=== PATIENT | male | born 1955 | race Two or more races ===

== ENCOUNTER 2021-09-17 08:01 | Outpatient (AMBR) | payer MEDICARE, MEDICAID, SELFPAY ==
--- NOTE | 2021-08-26 11:39 | PTNOTE_ITS ---
PT OP Initial Eval Patient Information Visit Reasons: left knee Medical Diagnosis: Left Knee Pain; Left Knee Medial Meniscus Tear Treatment Dx #1: Left Knee Mobility Deficits Treatment Dx #2: Difficulty Walking Start of Care: 08/26/21 Date of Onset: 07/30/21 Initial Assessment Subjective Pt is a 65 y/o male s/p left knee partial menisectomy and MMR 07/30/21 secondary to knee injury since . Pt still has a lot of knee pain (8/10) with all activities. Pt has limitation with walking, chores, self care, yardwork, sit- stand, standing, recreational activities, and performing functional tasks. Pt further stated that his left knee has been pending a replacement for 2 years. Objective Left Knee AROM: - 10 deg to 85 deg Left Knee MMTs Quads: 3/5 Hs: 3-/5 Left Hip MMTs Glute Med: 3-/5 Glute Max: 3-/5 SLS: unable Knee Cap Mobility: hypomobile in all plane Gait Observation: step to pattern with crutches with decrease L LE weigthbearing in stance phase Assessment Pt demonstrate left knee mobility and strength deficits s/p knee surgery leading to decline function. 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 1) Decrease knee extension lag to 0 in 8 wks to have a normal gait pattern 2) Increase left knee flexion AROM WFL in 8 wks to be able to perform squatting activities 3) Increase left knee MMTs grossly to 4-/5 in 8 wks to be able to perform stairs and steps 4) Increase left hip MMTs grossly to 3+/5 in 8 wks to be able to perform recreational activities 5) Decrease knee pain to 2/10 in 8 wks to be able to walk more than 1 hr Treatment Plan 1) Manual Therapy 2) Therapeutic Activities 3) Therapeutic Exercises 4) Modalities (ice, heat) 5) Balance Training 6) Gait Training Frequency and Duration 2 x wk for 6 wks Certification Dates: 08/26/21 to 11/24/21 Office Procedures PT Treatments PT Date of Service: 08/26/21 OP PT Eval Mod Complex 30 minutes: Yes
--- NOTE | 2021-08-30 13:11 | PT.ODAYNRPT ---
PT Outpatient Daily Note Date of Service: 08/30/2021 OP Daily Note Visit Reasons: left knee Outpatient Physical Therapy Treatment Date: 08/30/21 Subjective: pt came in late. pt states he took him a while to bare weight due to pain. Objective: see flow sheet. Assessment: pt came in with crutches. he was able to demonstrate ambulation with short distance. pt does have step to gait pattern and is very guarded due to pain and weakness. he is not able to contract the quads. he needs help lifting his leg up onto the bed. pt not able to stand from sitting position using his LLE so he compensated with RLE and used BUE strength sto stand. Plan: continue POC per PT. Length of Time (minutes) of Treatment: 30 Minutes Office Procedures PT Treatments PT Date of Service: 08/26/21 OP PT Eval Mod Complex 30 minutes: Yes PT Treatments PT Date of Service: 08/30/21 Therapeutic Exercise 30 minutes: Yes
--- NOTE | 2021-09-02 09:26 | PT.ODAYNRPT ---
PT Outpatient Daily Note Date of Service: 09/02/21 OP Daily Note Visit Reasons: left knee Outpatient Physical Therapy Treatment Date: 09/02/21 Subjective: Pt mention that his knee feels stiff this AM. Pt has difficulty with walking and sitting and notice more popping lately. Objective: Please see flow chart for list of ther ex performed Assessment: continue to slowly progress with ROM; still has difficulty WB with standing exercises due to pain Plan: Continue with PT Length of Time (minutes) of Treatment: 30 Minutes Office Procedures PT Treatments PT Date of Service: 08/26/21 OP PT Eval Mod Complex 30 minutes: Yes PT Treatments PT Date of Service: 08/30/21 Therapeutic Exercise 30 minutes: Yes PT Treatments PT Date of Service: 09/02/21 Therapeutic Exercise 30 minutes: Yes
--- NOTE | 2021-09-04 09:38 | PT.ODAYNRPT ---
PT Outpatient Daily Note Date of Service: 09/04/21 OP Daily Note Visit Reasons: left knee Outpatient Physical Therapy Treatment Date: 09/04/21 Subjective: Pt's knee is hurting more today. Pt stated that he has been doing more exercises at home. He tried making tacos yesterday Objective: Please see flow chart for list of ther ex performed Assessment: heat post treatment help with knee pain. Pt's exercises performed today mainly in sitting position due to pain with standing. Plan: Continue with PT Length of Time (minutes) of Treatment: 30 Minutes Office Procedures PT Treatments PT Date of Service: 08/26/21 OP PT Eval Mod Complex 30 minutes: Yes PT Treatments PT Date of Service: 08/30/21 Therapeutic Exercise 30 minutes: Yes PT Treatments PT Date of Service: 09/02/21 Therapeutic Exercise 30 minutes: Yes PT Treatments PT Date of Service: 09/04/21 Therapeutic Exercise 30 minutes: Yes
--- NOTE | 2021-09-09 10:53 | PT.ODAYNRPT ---
PT Outpatient Daily Note Date of Service: 09/09/21 OP Daily Note Visit Reasons: left knee Outpatient Physical Therapy Treatment Date: 09/09/21 Subjective: Pt mention that his knee is a little better. Pt has been able to walk longer within his house. Pt still has pain with bending the knee. Objective: Please see flow chart for list of ther ex performed Assessment: tolerate exercises with minimal pain Plan: Continue with PT Length of Time (minutes) of Treatment: 30 Minutes Office Procedures PT Treatments PT Date of Service: 08/26/21 OP PT Eval Mod Complex 30 minutes: Yes PT Treatments PT Date of Service: 08/30/21 Therapeutic Exercise 30 minutes: Yes PT Treatments PT Date of Service: 09/02/21 Therapeutic Exercise 30 minutes: Yes PT Treatments PT Date of Service: 09/04/21 Therapeutic Exercise 30 minutes: Yes PT Treatments PT Date of Service: 09/09/21 Therapeutic Exercise 30 minutes: Yes
--- NOTE | 2021-09-17 08:56 | PT.ODAYNRPT ---
PT Outpatient Daily Note Date of Service: 09/17/21 OP Daily Note Visit Reasons: left knee Outpatient Physical Therapy Treatment Date: 09/17/21 Subjective: Pt's knee is better. Pt has been able to walk longer with less limitation Objective: Please see flow chart for list of ther ex performed Assessment: tolerate exercises with minimal difficulty; still has limitation with knee flexion AROM due to pain and rectus tightness Plan: Continue with PT Length of Time (minutes) of Treatment: 30 Minutes Office Procedures PT Treatments PT Date of Service: 08/26/21 OP PT Eval Mod Complex 30 minutes: Yes PT Treatments PT Date of Service: 08/30/21 Therapeutic Exercise 30 minutes: Yes PT Treatments PT Date of Service: 09/02/21 Therapeutic Exercise 30 minutes: Yes PT Treatments PT Date of Service: 09/04/21 Therapeutic Exercise 30 minutes: Yes PT Treatments PT Date of Service: 09/09/21 Therapeutic Exercise 30 minutes: Yes PT Treatments PT Date of Service: 09/17/21 Therapeutic Exercise 30 minutes: Yes
== END 2021-09-20 23:59 | disposition home or self-care (01) ==
PROVIDERS: PCP Family Medicine; Referring Provider Family Medicine; Visit Provider Orthopaedic Surgery
DX: M25.561 Pain in right knee (principal); R26.2 Difficulty in walking, not elsewhere classified
CPT/HCPCS: 97110; 97162

== ENCOUNTER 2024-08-15 10:30 | Outpatient (RCR) | payer MEDICARE, MEDICAID, SELFPAY ==
--- NOTE | 2024-07-22 14:41 | PT.ODAYNRPT ---
PT Outpatient Daily Note OP Daily Note Outpatient Physical Therapy Treatment Date: 07/22/24 Visit Reasons: Right shoulder surgery Subjective: Pt shared shoulder flexibility is improving. Objective: Please see flow sheet for ther ex list. Assessment: Pt AROM continues to improve, minimal soreness post session. Plan: Continue with POC. Progress per post op protocol. Length of Time (minutes) of Treatment: 30 Minutes CONTINUOUS MINER OPERATOR HELPER Service Modifier Method I: Divide the number of min of care provided by the CONTINUOUS MINER OPERATOR HELPER/SDV PILOT/NAVIGATOR/DDS OPERATOR by the total min of care provided then multiply by 100. If greater than 11 percent modifier is required. Method II: Divide the total time of care provided to patient by 10 (round to the nearest whole number) and add 1 min. to set the minimum time requirement. If treatment total was 60 min., then 10% of 6 min PT CQ modifier applied: CQ Modifier applied Procedure Charges Therapeutic Exercise 30 minutes: Yes
--- NOTE | 2024-07-27 12:47 | PT.ODS1RPT ---
PT OP Progress/Discharge Note Date of Service: 07/27/24 Progress Note/DC Note Progress Note/Discharge Note: Progress Note Patient Information Visit Reasons: Right shoulder surgery Medical Diagnosis: s46.092d Treatment Dx #1: Left Shoulder Mobility Deficits Treatment Dx #2: Left Shoulder Weakness Service Continue Service or Discharge: Continue Service Certification Date Certification Dates: 07/27/24 to 10/27/23 Status Subjective: Pt shoulder is feeling better. Pt has been able to groom, feed, and perform light chores around the house with less limitation. Pt still has difficulty reaching behind the back, lifting, overhead motions, and recreational activities. Pt will follow up with surgeon in August. Objective: Left Shoulder AROM Flexion: 100 deg Abduction: 90 deg External Rotation: 50 deg Internal Rotation: 30 deg Left Shoulder MMTs: grossly 3-/5 Left Scapula MMTs: grossly 3-/5 HBB: Thumb at greater trochanter Assessment: Pt is slowly progressing with shoulder AROM and strength allowing him to start light ADLs and chores around the house. Pt still has limitation with overhead motions, lifting, and recreational activities due to limited AROM and decrease strength. Pt has not met set goals and will continue to benefit from physical therapy; thank you for your referrals. Plan: Continue with PT/POC and add 12 sessions (2 x wk for 6 wks) Procedure Charges Therapeutic Exercise 30 minutes: Yes
--- NOTE | 2024-07-29 12:59 | PT.ODAYNRPT ---
PT Outpatient Daily Note OP Daily Note Outpatient Physical Therapy Treatment Date: 07/29/24 Visit Reasons: Right shoulder surgery Subjective: Pt's shoulder is feeling better and notice increase overhead motions and able to groom with less limitation. Objective: Please see flow chart for list of ther ex performed Assessment: encourage to complete HBB AROM; patient hesitant to perform exercise due to pain. Pt was able to complete instructed reps. Plan: Continue with PT Length of Time (minutes) of Treatment: 30 Minutes Procedure Charges Therapeutic Exercise 30 minutes: Yes
--- NOTE | 2024-08-03 13:15 | PT.ODAYNRPT ---
PT Outpatient Daily Note OP Daily Note Outpatient Physical Therapy Treatment Date: 08/03/24 Visit Reasons: Right shoulder surgery Subjective: Pt c/o L shoulder feeling stiff and sore today more than usual thinks it is due to cold weather. Objective: Please see flow sheet for ther ex list. Assessment: Focus on AAROM and AROM to accommodate report and c/o stiffness. Plan: Continue with pOC. Length of Time (minutes) of Treatment: 30 Minutes LAY OUT AND DETAIL DRAFTER Service Modifier Method I: Divide the number of min of care provided by the LAY OUT AND DETAIL DRAFTER/LIANNA by the total min of care provided then multiply by 100. If greater than 11 percent modifier is required. Method II: Divide the total time of care provided to patient by 10 (round to the nearest whole number) and add 1 min. to set the minimum time requirement. If treatment total was 60 min., then 10% of 6 min PT CQ modifier applied: CQ Modifier applied Procedure Charges Therapeutic Exercise 30 minutes: Yes
--- NOTE | 2024-08-08 16:17 | PT.ODAYNRPT ---
PT Outpatient Daily Note OP Daily Note Outpatient Physical Therapy Treatment Date: 08/08/24 Visit Reasons: Right shoulder surgery Subjective: Reaching behind the back is still hard. Objective: HBB AROM: thumb at L4 Assessment: slow progress with HBB AROM due to ant shoulder capsule tightness and lack of stretching at home. Pt encourage to stretch more at home. Pt gave verbal understanding and consent Plan: Continue with PT Length of Time (minutes) of Treatment: 30 Minutes Procedure Charges Therapeutic Exercise 30 minutes: Yes
--- NOTE | 2024-08-11 09:42 | PT.ODAYNRPT ---
PT Outpatient Daily Note OP Daily Note Outpatient Physical Therapy Treatment Date: 08/11/24 Visit Reasons: Right shoulder surgery Subjective: Pt reports R shoulder is stiff and sore. Objective: Please see flow sheet for ther ex list. Assessment: Progressing interventions as tolerated and per post op protocol, pt continues to present with poor GH translation resulting in limited ROM. Plan: Continue with pOC. Length of Time (minutes) of Treatment: 30 Minutes Procedure Charges Therapeutic Exercise 30 minutes: Yes
--- NOTE | 2024-08-15 11:19 | PT.ODAYNRPT ---
PT Outpatient Daily Note OP Daily Note Outpatient Physical Therapy Treatment Date: 08/15/24 Visit Reasons: Right shoulder surgery Subjective: Pt's shoulder is better and still notice reaching behind the back is difficult. Objective: Right HBB AROM: thumb at gluteal fold Assessment: Minimal changes with HBB AROM due IR and add tightness. Pt encourage to practice HBB AAROM and stretching at home to help increase HBB AROM. Pt gave verbal unstanding. Plan: Continue with PT Length of Time (minutes) of Treatment: 30 Minutes Procedure Charges Therapeutic Exercise 30 minutes: Yes
== END 2024-08-20 23:59 | disposition home or self-care (01) ==
LOC: CPTX 10:30
PROVIDERS: PCP Orthopaedic Surgery; Referring Provider Orthopaedic Surgery; Visit Provider Orthopaedic Surgery
DX: M25.512 Pain in left shoulder (principal); R53.1 Weakness; S46.092D Other injury of muscle(s) and tendon(s) of the rotator cuff of left shoulder, subsequent encounter; W19.XXXD Unspecified fall, subsequent encounter
CPT/HCPCS: 97110

== ENCOUNTER 2024-09-19 08:30 | Outpatient (RCR) | payer MEDICARE, MEDICAID, SELFPAY ==
--- NOTE | 2024-08-24 10:48 | PT.ODS1RPT ---
PT OP Progress/Discharge Note Date of Service: 08/24/24 Progress Note/DC Note Progress Note/Discharge Note: Progress Note Patient Information Visit Reasons: Right shoulder surgery Medical Diagnosis: s46.092d Treatment Dx #1: Right Shoulder Mobility Deficits Treatment Dx #2: Right Shoulder Weakness Service Continue Service or Discharge: Continue Service Certification Date Certification Dates: 08/24/24 to 11/22/24 Status Subjective: Pt's shoulder feels much better and notice progress with overhead motions. Pt has been able to perform self care, chores, light lifting, and yardwork with less limitation. Pt still has limitation with reaching behind the back, to the side, and performing recreational activities. Objective: Left Shoulder AROM Flexion: 150 deg Abduction: 120 deg External Rotation: 75 deg Internal Rotation: 50 deg Left Shoulder MMTs: grossly 3/5 Left Scapula MMTs: grossly 3/5 HBB AROM: Thumb at L3 Assessment: Pt progressing with shoulder AROM and strength allowing him to start light ADLs, chores, and self care activities with less limitation. Pt still has limitation with reaching behind back, lifting, and recreational activities due to rotator cuff weakness and flexibility. Pt has not met set goals and will continue to benefit from physical therapy; thank you for your referrals. Plan: Continue with PT/POC Procedure Charges Therapeutic Exercise 30 minutes: Yes
--- NOTE | 2024-08-26 14:35 | PT.ODAYNRPT ---
PT Outpatient Daily Note OP Daily Note Outpatient Physical Therapy Treatment Date: 08/26/24 Visit Reasons: Right shoulder surgery Subjective: Pt's able to reach further behind the back. Objective: Please see flow chart for list of ther ex perfomed Assessment: progressing with HBB AROM with less pain reported. Pt encouraged to continue to stretch to increase HBB AROM. Pt gave verbal understanding Plan: Continue with PT Length of Time (minutes) of Treatment: 30 Minutes Procedure Charges Therapeutic Exercise 30 minutes: Yes
--- NOTE | 2024-08-29 13:55 | PT.ODAYNRPT ---
PT Outpatient Daily Note OP Daily Note Outpatient Physical Therapy Treatment Date: 08/29/24 Visit Reasons: Right shoulder surgery Subjective: Pt reports R shoulder is doing ok, still has occasional pain. Objective: Please see flow sheet for ther ex list. Assessment: Pt IR behind back continues to be painful and limited. Plan: Continue with POC, progress strengthening. Length of Time (minutes) of Treatment: 30 Minutes PLANER CHAIN OFFBEARER Service Modifier Method I: Divide the number of min of care provided by the PLANER CHAIN OFFBEARER/LIANNA by the total min of care provided then multiply by 100. If greater than 11 percent modifier is required. Method II: Divide the total time of care provided to patient by 10 (round to the nearest whole number) and add 1 min. to set the minimum time requirement. If treatment total was 60 min., then 10% of 6 min PT CQ modifier applied: CQ Modifier applied Procedure Charges Therapeutic Exercise 30 minutes: Yes
--- NOTE | 2024-08-31 11:27 | PTNOTE_ITS ---
PT Outpatient Daily Note OP Daily Note Outpatient Physical Therapy Treatment Date: 08/31/24 Visit Reasons: Right shoulder surgery Subjective: Pt's shoulder stiff but notice he's been able to continue reaching behind his back with less pain. Objective: HBB AROM: Thumb at L3 Assessment: no changes noted with HBB AROM today with post stretching. Pt encourage to cont inue stretching at home to increase HBB AROM Plan: Continue with PT Length of Time (minutes) of Treatment: 30 Minutes Procedure Charges Therapeutic Exercise 30 minutes: Yes
--- NOTE | 2024-09-05 10:35 | PT.ODAYNRPT ---
PT Outpatient Daily Note OP Daily Note Outpatient Physical Therapy Treatment Date: 09/05/24 Visit Reasons: Right shoulder surgery Subjective: Pt still has trouble reaching behind the back but notice his ROM is improving. Objective: Please see flow chart for list of ther ex performed Assessment: progressing with shoulder HBB AAROM. Pt had less pain with shoulder ER stretch today Plan: Continue with PT Length of Time (minutes) of Treatment: 30 Minutes Procedure Charges Therapeutic Exercise 30 minutes: Yes
--- NOTE | 2024-09-08 11:19 | PTNOTE_ITS ---
PT Outpatient Daily Note OP Daily Note Outpatient Physical Therapy Treatment Date: 09/08/24 Visit Reasons: Right shoulder surgery Subjective: Pt reports R shoulder is doing ok, feels like it has been more stiff and sore due to cold weather. Objective: Please see flow sheet for ther ex list. Assessment: Continued focus on restoring ROM and functional strength. PT continues to have difficulty reaching behind back in IR. Plan: Continue with pOC. Length of Time (minutes) of Treatment: 30 Minutes ASSISTANT FIELD HOCKEY COACH Service Modifier Method I: Divide the number of min of care provided by the ASSISTANT FIELD HOCKEY COACH/RAILWAY TRACK WORKER by the total min of care provided then multiply by 100. If greater than 11 percent modifier is required. Method II: Divide the total time of care provided to patient by 10 (round to the nearest whole number) and add 1 min. to set the minimum time requirement. If treatment total was 60 min., then 10% of 6 min PT CQ modifier applied: CQ Modifier applied Procedure Charges Therapeutic Exercise 30 minutes: Yes
--- NOTE | 2024-09-12 09:19 | PT.ODAYNRPT ---
PT Outpatient Daily Note OP Daily Note Outpatient Physical Therapy Treatment Date: 09/12/24 Visit Reasons: Right shoulder surgery Subjective: Pt's shoulder sore from this weekend. Pt mention he was trying to put a tarp over his shed. Objective: Please see flow chart for list of ther ex performed Assessment: progressing with HBB AROM with less pain reported. Plan: Continue with PT Length of Time (minutes) of Treatment: 30 Minutes Procedure Charges Therapeutic Exercise 30 minutes: Yes
--- NOTE | 2024-09-16 09:01 | PT.ODAYNRPT ---
PT Outpatient Daily Note OP Daily Note Outpatient Physical Therapy Treatment Date: 09/16/24 Visit Reasons: Right shoulder surgery Subjective: Pt's shoulder pain is okay, however, stiff lately. Pt continues HEP and stretching at home. Objective: Please see flow chart for list of ther ex performed Assessment: tolerate exercises with minimal pain; difficulty with D2 UE with 2 # weight. Modified back to arm weight. Pt's form and ROM improved Plan: Continue with PT Length of Time (minutes) of Treatment: 30 Minutes Procedure Charges Therapeutic Exercise 30 minutes: Yes
--- NOTE | 2024-09-19 08:55 | PT.ODAYNRPT ---
PT Outpatient Daily Note OP Daily Note Outpatient Physical Therapy Treatment Date: 09/19/24 Visit Reasons: Right shoulder surgery Subjective: Pt's shoulder is doing okay. No new concerns to report. Objective: Please see flow chart for list of ther ex performed Assessment: slow progress with HBB AROM and PNF patterns due to pain and weakness Plan: Continue with PT Length of Time (minutes) of Treatment: 30 Minutes Procedure Charges Therapeutic Exercise 30 minutes: Yes
== END 2024-09-20 23:59 | disposition home or self-care (01) ==
LOC: CPTX 08:30
PROVIDERS: PCP Orthopaedic Surgery; Referring Provider Orthopaedic Surgery; Visit Provider Orthopaedic Surgery
DX: M25.512 Pain in left shoulder (principal); R53.1 Weakness; S46.092D Other injury of muscle(s) and tendon(s) of the rotator cuff of left shoulder, subsequent encounter; W19.XXXD Unspecified fall, subsequent encounter
CPT/HCPCS: 97110

== ENCOUNTER 2024-10-17 09:30 | Outpatient (RCR) | payer MEDICARE, MEDICAID, SELFPAY ==
--- NOTE | 2024-09-23 09:24 | PT.ODAYNRPT ---
PT Outpatient Daily Note OP Daily Note Outpatient Physical Therapy Treatment Date: 09/23/24 Visit Reasons: right shoulder surgery Subjective: Pt's shoulder feels better and notice he's able to reach further behind the back. Pt has been working on HBB AROM/stretching at home. Objective: HBB AROM: Thumb at T12 Assessment: improving slowly with HBB AROM with less pain reported. Pt encouraged to start doorway stretching at home. Pt gave verbal consent. Plan: Continue with PT Length of Time (minutes) of Treatment: 30 Minutes Procedure Charges Therapeutic Exercise 30 minutes: Yes
--- NOTE | 2024-09-28 10:27 | PT.ODAYNRPT ---
PT Outpatient Daily Note OP Daily Note Outpatient Physical Therapy Treatment Date: 09/28/24 Visit Reasons: right shoulder surgery Subjective: Pt reports shoulder mobility is slow to progress but received cortisone shot feels it is helping with pain. Objective: Please see flow sheet for ther ex list. Assessment: Pt demonstrates limited ROM in all directions, high focus to improve GH translation and capular stretches. Plan: Continue with pOC. Length of Time (minutes) of Treatment: 30 Minutes INDEPENDENT MARKETING CONSULTANT Service Modifier Method I: Divide the number of min of care provided by the INDEPENDENT MARKETING CONSULTANT/ELECTRONIC COURT RECORDER by the total min of care provided then multiply by 100. If greater than 11 percent modifier is required. Method II: Divide the total time of care provided to patient by 10 (round to the nearest whole number) and add 1 min. to set the minimum time requirement. If treatment total was 60 min., then 10% of 6 min PT CQ modifier applied: CQ Modifier applied Procedure Charges Therapeutic Exercise 30 minutes: Yes
--- NOTE | 2024-09-30 09:51 | PT.ODAYNRPT ---
PT Outpatient Daily Note OP Daily Note Outpatient Physical Therapy Treatment Date: 09/30/24 Visit Reasons: LEFT shoulder surgery Subjective: Pt's shoulder is better and continues to notice he's able to reach further behind the back. Objective: Please see flow chart for list of ther ex performed Assessment: continues to progress with HBB AROM; patient able to tolerate HBB stretch longer now Plan: Continue with PT Length of Time (minutes) of Treatment: 30 Minutes Procedure Charges Therapeutic Exercise 30 minutes: Yes
--- NOTE | 2024-10-03 09:56 | PT.ODAYNRPT ---
PT Outpatient Daily Note OP Daily Note Outpatient Physical Therapy Treatment Date: 10/03/24 Visit Reasons: LEFT shoulder surgery Subjective: Pt's shoulder is better. Pt mentioned it was sore over the weekend due to shoveling dirt this pas week. Objective: Please see flow chart for list of ther ex performed Assessment: progressing with shoulder AROM in all plane. Pt continues to have limitation with PNF exercises due to fatigue and RTC weakness; modified exercise back to no weight and worked on form Plan: Continue with PT Length of Time (minutes) of Treatment: 30 Minutes Procedure Charges Therapeutic Exercise 30 minutes: Yes
--- NOTE | 2024-10-05 10:04 | PT.ODAYNRPT ---
PT Outpatient Daily Note OP Daily Note Outpatient Physical Therapy Treatment Date: 10/05/24 Visit Reasons: LEFT shoulder surgery Subjective: Pt shoulder is good. No new concerns to report. Objective: Please see flow chart for list of ther ex performed Assessment: continue to slowly progress with HBB AROM and AAROM Plan: Continue with PT Length of Time (minutes) of Treatment: 30 Minutes Procedure Charges Therapeutic Exercise 30 minutes: Yes
--- NOTE | 2024-10-11 09:49 | PTNOTE_ITS ---
PT Outpatient Daily Note OP Daily Note Outpatient Physical Therapy Treatment Date: 10/11/24 Visit Reasons: LEFT shoulder surgery Subjective: Pt reports noticing progress with overhead reach flexibility but still has difficulty reaching behind back. Objective: Please see flow sheet for ther ex list. Assessment: Continued with focus on restoring strength and ROM. Plan: Continue with POC. Length of Time (minutes) of Treatment: 30 Minutes DEPARTMENT OF SOCIOLOGY CHAIR Service Modifier Method I: Divide the number of min of care provided by the DEPARTMENT OF SOCIOLOGY CHAIR/LIANNA by the total min of care provided then multiply by 100. If greater than 11 percent modifier is required. Method II: Divide the total time of care provided to patient by 10 (round to the nearest whole number) and add 1 min. to set the minimum time requirement. If treatment total was 60 min., then 10% of 6 min PT CQ modifier applied: CQ Modifier applied Procedure Charges Therapeutic Exercise 30 minutes: Yes
--- NOTE | 2024-10-13 10:34 | PT.ODAYNRPT ---
PT Outpatient Daily Note OP Daily Note Outpatient Physical Therapy Treatment Date: 10/13/24 Visit Reasons: LEFT shoulder surgery Subjective: Pt shared ROM is not where he would like but does notice progress. Objective: Please see flow sheet for ther ex list. Assessment: Pt reminded of stretches and strengthening interventions he can do for HEP, pt able to replicate with good technique. Plan: Assess for note, pt has one visit left. Length of Time (minutes) of Treatment: 30 Minutes Procedure Charges Therapeutic Exercise 30 minutes: Yes
--- NOTE | 2024-10-17 09:52 | PT.ODS1RPT ---
PT OP Progress/Discharge Note Date of Service: 10/17/24 Progress Note/DC Note Progress Note/Discharge Note: DC Note Patient Information Visit Reasons: LEFT shoulder surgery Medical Diagnosis: [id number] Treatment Dx #1: Left Shoulder Pain Service Continue Service or Discharge: Discharge Discharge Date: 10/17/24 Status Subjective: Pt's shoulder feels much better. Pt has been able to cook, clean, perform chores, self care, and yardwork. At this time Pt feels comfortable being release from care with exercises to continue at home. Objective: Left Shoulder AROM: all motions are WFL Left Shoulder MMTs: grossly 4/5 Left Scapula MMTs: grossly 4-/5 HBB AROM: Thumb at T11 Assessment: Pt demonstrate functional left shoulder mobility and strength allowing patient to perform ADLs, chores, and recreational activities with less limitation. Pt has met set goals in therapy and will no longer benefit from physical therapy. Pt was instructed on HEP last session and educated to continue exercises to maintain overall mobility. Pt performed all exercises safely, thank you for your referrals. Plan: D/C home with HEP and follow up with MD LOUISE Procedure Charges Therapeutic Exercise 30 minutes: Yes
== END 2024-10-21 23:59 | disposition home or self-care (01) ==
LOC: CPTX 09:30
PROVIDERS: PCP Orthopaedic Surgery; Referring Provider Orthopaedic Surgery; Visit Provider Orthopaedic Surgery
DX: M25.512 Pain in left shoulder (principal); R53.1 Weakness; S46.092D Other injury of muscle(s) and tendon(s) of the rotator cuff of left shoulder, subsequent encounter; W19.XXXD Unspecified fall, subsequent encounter
CPT/HCPCS: 97110

== ENCOUNTER → 2025-04-14 | Outpatient (CLI) | payer MEDICARE, MEDICAID, SELFPAY ==
[2025-04-14 08:47] LABS: Glucose Estimated Average 140 mg/dL (80-131); Hemoglobin A1C 6.5 % Hgb (4.8-6.0)
[2025-04-14 09:09] LABS: Alanine Aminotransferase 27 U/L (10-49); Albumin, Serum 4.2 gm/dL (3.4-4.8); Albumin/Globulin Ratio 1.7 (1.2-2.2); Alkaline Phosphatase 78 U/L (46-116); Anion Gap 10 (7-16); Aspartate Amino Transferase 20 U/L (0-34); BUN/Creatinine Ratio 13 Ratio (12-20); Bilirubin,Total 0.5 mg/dL (0.3-1.2); Blood Urea Nitrogen 12 mg/dL (9-23); Calcium 9.2 mg/dL (8.3-10.6); Calcium (Corrected) 9.2 mg/dL (8.5-10.1); Carbon Dioxide 27.7 mMol/L (20.0-31.0); Cardiac Risk Estimate 3.5 RATIO (4.0-6.7); Chloride 107 mMol/L (98-107); Cholesterol 121 mg/dL (132-200); Creatinine (Component) 0.9 mg/dL (0.6-1.3); Globulin 2.5 gm/dL (2.3-3.5); Glucose 124 mg/dL (74-106); HDL Cholesterol 35 mg/dL (40-60); LDL Cholesterol,Calculated 65 mg/dL (0-130); Osmolality,Calculated 289 (275-295); Potassium 4.1 mMol/L (3.4-5.1); Sodium 145 mMol/L (136-145); Total Protein 6.7 gm/dL (5.7-8.2); Triglycerides 107 mg/dL (30-150); eGFR > 60 See Note
[2025-04-14 10:09] LABS: Creatinine MALB Rnd Ur 105 mg/dL (30-125); Microalbumin Creat Ratio 12 mg/gCrea (<30); Microalbumin, Random Urine 13 mg/L (0-300)
== END | disposition home or self-care (01) ==
LOC: COPL 07:41
PROVIDERS: PCP Family Medicine; Referring Provider Family Medicine; Visit Provider Family Medicine
DX: E11.65 Type 2 diabetes mellitus with hyperglycemia (principal); E78.1 Pure hyperglyceridemia
CPT/HCPCS: 36415; 80053; 80061; 82043; 82570; 83036